=== PATIENT | female | born 1995 | race Hispanic/Latino ===

== ENCOUNTER 2023-12-19 23:14 | Emergency (ER) | payer SELFPAY ==
[2023-12-19 23:20] VITALS: BP 118/75
[2023-12-20 00:18] VITALS: BMI 29.1
[2023-12-20 00:39] VITALS: BP 138/62
--- NOTE | 2023-12-20 00:49 | ED.GENMED ---
History of Present Illness
General
Chief Complaint: Allergic Reaction
Time Seen by Provider: 12/20/23 00:17
History of Present Illness
History of Present Illness:
28-year-old female without significant past medical history presenting for concern of allergic reaction. Patient reports for the past 3 days she has had itching rash to her body. Denies any known new exposures or creams. Denies any new foods.
Denies any history of allergic reactions in the past. Denies any difficulty breathing or vomiting. She took 1 Benadryl prior to arrival with some improvement of the itching. Denies any chest pain. Denies additional acute medical complaints
Phy Exam
Physical Exam
Physical Exam:
General: Well-appearing, no clinical signs of dehydration, nontoxic and in no acute distress
HEENT: protecting airway
Neck: appears supple
CV: Normal heart rate, regular rhythm, no evidence of cyanosis
Resp: No accessory muscle use, no increased work of breathing, lungs clear to auscultation bilaterally
Abd: Nondistended
Extremities: No deformities, no swelling
Neuro: alert, no focal neurologic deficit
: deferred
Rectal: deferred
Psych: Normal affect
Skin: Intact, urticarial rash to the back and extremities, scalp
Course
Vital Signs
Initial and Last Documented VS:
Initial Vital Signs
Temp Pulse Resp BP Pulse Ox
98.8 F 72 20 118/75 100
12/19/23 23:20 12/19/23 23:20 12/19/23 23:20 12/19/23 23:20 12/19/23 23:20
Last Documented Vital Signs
Temp Pulse Resp BP Pulse Ox
98.8 F 68 18 138/62 99
12/19/23 23:20 12/20/23 00:39 12/20/23 00:39 12/20/23 00:39 12/20/23 00:39
MDM/Problems Addressed
MDM/Problems Addressed:
28-year-old female without significant past medical history presenting for concern of allergic reaction. Vital signs normal.
On exam, patient well-appearing, no acute distress or discomfort. Patient with benign urticarial rash. No concerning signs for anaphylaxis, without any respiratory or GI symptoms. Will start on steroid pack. Otherwise feel stable for discharge
with outpatient follow-up for allergy testing. Advised continued use of Benadryl as needed for itching. Return precautions discussed and patient verbalized understanding
*Critical Care Note
Total Time (30-74mins, 75-104mins- exclusive of procedures): Not Applicable
ED Attending Note
-
Portions of this chart may have been created with voice recognition software.� Occasional wrong word or��sound alike� substitutions may have occurred due to the inherent limitations of voice recognition software.
Discharge Plan
Departure
Prescriptions:
No Action
No Current Medications
0
Interventions
Interventions:
*Risk Screen - Suicide Last Done: 12/20/23 00:20
*General Assessment Last Done: 12/20/23 00:19
*Neglect/Abuse Screening Last Done: 12/20/23 00:19
ED- Fall Risk Assessment Last Done: 12/20/23 00:20
*ED COVID-19 Vaccine History Last Done: 12/20/23 00:19
ED- Cardiac Assessment Last Done: 12/20/23 00:20
ED- Pulmonary Assessment Last Done: 12/20/23 00:40
ED-Skin Assessment Last Done: 12/20/23 00:20
Discharge Date and Time
Print Language: MONGOLIAN
== END 2023-12-20 01:14 | disposition home or self-care (01) ==
LOC: EMR 23:14
PROVIDERS: EMERGENCY PHYSICIAN Student in an Organized Health Care Education/Training Program
DX: T78.40XA Allergy, unspecified, initial encounter (principal); X58.XXXA Exposure to other specified factors, initial encounter
CPT/HCPCS: 99282

== ENCOUNTER 2024-05-14 07:15 | Emergency (ER) | payer SELFPAY ==
[2024-05-14 07:17] VITALS: BP 114/71
--- NOTE | 2024-05-14 08:14 | ED.GENMED ---
History of Present Illness
General
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
Source: patient and family
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
Time Seen by Provider: 05/14/24 07:58
Nursing documentation reviewed up to this point in time: agreed with
History of Present Illness
History of Present Illness:
28-year-old female otherwise healthy presenting to the emergency department today with concerns of vaginal bleeding over the past 13 days which is abnormal for her. She typically has fairly normal menstrual cycles with a few days of bleeding. She
has been using 4-5 pads per day over the past 13 days. She is also had some cramping discomfort to the pelvic area. She has any chest pain shortness breath lightheadedness,. No changes in urination bowel movements.
Review of Systems
Review of Systems
Allergies reviewed?: Yes
All Other Systems: ROS reviewed and negative except as documented in HPI and ROS
Phy Exam
Physical Exam
Physical Exam:
GENERAL: Alert , in no apparent distress
EYE: pupils equal and reactive
NECK: Supple, no significant adenopathy.
ENT: o/p clr, mmm.
CARDIAC: Regular rate and rhythm .
LUNGS: Clear breath sounds bilaterally, no acute respiratory distress, no wheezes/rales/rhonchi
ABDOMEN: Pelvic examination with small amount of blood no specific masses no specific tenderness, abdomen with vague discomfort to the lower abdomen otherwise soft, without focal tenderness, no r/g, no cvat
NEUROLOGICAL: Alert and oriented, no focal neuro deficits
SKIN: Warm and dry, skin intact.
MUSCULOSKELETAL: No edema, well perfused.
PSYCH: Normal and appropriate interaction.
Course
Orders/Labs/Results
Orders:
Orders
05/14/24 07:59
Test Result ONCE
05/14/24 08:13
US Pelvis W Transvag Combined Urgent
Reason For Exam: vaginal bleeding pelvic pain
05/14/24 08:20
Beta Hcg Serum Qualitative Screen [HCG, Serum Qualitative Screen] Urgent
CBC/With Diff [Complete Blood Count/With Diff] Urgent
CMP [Comprehensive Metabolic Panel] Urgent
05/14/24 11:02
Urinalysis Reflex To Culture Urgent
Date Specimen was Collected: 05/14/24
Time Specimen was Collected: 11:01
Urine Microscopic Reflex Cult Urgent
Abnormal Lab Results
05/14/24 05/14/24
08:20 11:02
Glucose 101 H mg/dl
(70-99)
Ur Occult Blood Reflex 3+ A
(Negative)
05/14/24 08:20
05/14/24 08:20
Vital Signs
Initial and Last Documented VS:
Initial Vital Signs
Temp Pulse Resp BP Pulse Ox
98.7 F 75 16 114/71 100
05/14/24 07:17 05/14/24 07:17 05/14/24 07:17 05/14/24 07:17 05/14/24 07:17
Last Documented Vital Signs
Temp Pulse Resp BP Pulse Ox
98.7 F 75 16 114/71 100
05/14/24 07:17 05/14/24 07:17 05/14/24 07:17 05/14/24 07:17 05/14/24 07:17
MDM/Problems Addressed
MDM/Problems Addressed:
28-year-old female presenting to the emergency department today with concerns of vaginal bleeding over the past 13 days lower abdomen and pelvic cramping discomfort. 4 pads daily. Reproducible pain to palpation. Pelvic examination without
specific findings. Plan for ultrasound and labs for further assessment. Here labs unremarkable normal hemoglobin normal urinalysis ultrasound without emergent findings possible findings of pelvic congestion syndrome advised for close follow-up
with gynecology she was given information for follow-up. Return precautions given.
*Critical Care Note
Total Time (30-74mins, 75-104mins- exclusive of procedures): Not Applicable
ED Attending Note
-
Portions of this chart may have been created with voice recognition software.� Occasional wrong word or��sound alike� substitutions may have occurred due to the inherent limitations of voice recognition software.
Discharge Plan
Departure
Patient Disposition: Home (Routine Discharge)
Date of Disposition: 05/14/24
Time of Disposition: 11:29
Patient with high blood pressure during this ER visit?: No
Condition: Good
Covid-19: Not Applicable
Discharge Problem:
Abnormal vaginal bleeding
Instructions: Heavy Periods (DC)
Prescriptions:
No Action
methylprednisolone [Medrol (Mario)] 4 mg tablets,dose pack
See Rx Instructions .ROUTE .COMPLEX Qty: 21 0RF
Rx Instructions:
orally per package directions
Referrals:
Daily Hinds, DO [Active] - Follow up in 5-7 days
UNKNOWN - PT DOES,NOT KNOW [Family Provider] -
Activity Restrictions/Additional Instructions:
You came to the emergency department today with concerns of vaginal bleeding. Please follow-up closely with gynecology for further assessment. He can take Motrin to help with symptoms in the meantime. Return for any worsening, new or concerning
symptoms.
Interventions
Interventions:
*Risk Screen - Suicide Last Done: 05/14/24 07:17
*General Assessment Last Done: 05/14/24 07:17
*Neglect/Abuse Screening Last Done: 05/14/24 07:17
ED- Fall Risk Assessment Last Done: 05/14/24 08:07
ED-Female Genitourinary Assessment Last Done: 05/14/24 08:07
Discharge Date and Time
Print Language: [place]
[2024-05-14 08:33] LABS: % Basophils 0.7 % (0-2); % Eosinophils 1.9 % (0-6); % Immature Granulocytes 0.4 % (0-0.5); % Lymphocytes 28.6 % (20.5-51.1); % Monocytes 8.4 % (1.7-9.3); Absolute Basophils 0.1 10^3/uL (0-0.2); Absolute Eosinophils 0.1 10^3/uL (0-0.7); Absolute Lymphocytes 2.1 10^3/uL (1.2-3.4); Absolute Monocytes 0.6 10^3/uL (0.1-0.6); Absolute Neutrophils 4.4 10^3/uL (1.4-6.5); Hematocrit 40.9 % (37.0-47.0); Hemoglobin 13.9 g/dL (12.0-16.0); Mean Corpuscular Hgb 30.8 pg (27.0-31.0); Mean Corpuscular Volume 90.7 fL (81.0-99.0); Mean Platelet Volume 9.3 fL (7.4-10.4); Nucleated Red Blood Cells % 0 %; Platelet Count 274 10^3/uL (130-400); Red Blood Cell Count 4.51 10^6/uL (4.20-5.40); White Blood Cell Count 7.3 10^3/uL (4.8-10.8)
[2024-05-14 08:46] LABS: HCG, Serum Qualitative Screen Negative
[2024-05-14 08:49] LABS: ALT (SGPT) 25 U/L (0-35); AST (SGOT) 26 U/L (14-36); Albumin 4.5 g/dl (3.5-5.0); Alkaline Phosphatase 55 U/L (38-126); Blood Urea Nitrogen 17 mg/dl (7-17); Calcium 9.2 mg/dl (8.4-10.2); Carbon Dioxide 26 mmol/L (22-30); Chloride 104 mmol/L (98-107); Estimated Creatinine Clearance 87 ml/min; Glucose 101 mg/dl (70-99); Potassium 4.1 mmol/L (3.5-5.1); Sodium 139 mmol/L (135-145); Total Bilirubin 0.3 mg/dl (0.2-1.3); Total Protein 7.2 g/dl (6.3-8.2); eGFR > 60.00
[2024-05-14 11:12] LABS: Urine Albumin Negative (Neg - Trace); Urine Bilirubin Negative (Negative); Urine Character Clear (Clear); Urine Color Yellow; Urine Glucose Negative (Negative); Urine Ketone Negative (Negative); Urine Leukocyte Negative (Negative); Urine Nitrite Negative (Negative); Urine Occult Blood 3+ (Negative); Urine Urobilinogen Negative (Neg - 1+); Urine pH 6.5 (5.0-9.0)
[2024-05-14 11:24] LABS: Urine Squamous Cell 16-20 /LPF (Few)
[2024-05-14 11:26] LABS: Urine Red Blood Cell 0-2 /HPF (0-2); Urine White Cell 0-2 /HPF (0-5)
[2024-05-14] MEDS: TORADOL 15 MG IM (11:34)
[2024-05-14 11:40] VITALS: BP 102/60
== END 2024-05-14 11:45 | disposition home or self-care (01) ==
LOC: EMR 07:15
PROVIDERS: Physician Assistant; EMERGENCY PHYSICIAN Emergency Medicine
DX: N93.9 Abnormal uterine and vaginal bleeding, unspecified (principal); R10.2 Pelvic and perineal pain
CPT/HCPCS: 99284; 96372; 76830; 76856; 80053; 81003; 81015; 84703; 85025